=== PATIENT | female | born 1940 | race Asian ===

== ENCOUNTER 2016-05-04 11:00 | Outpatient (CLI) | payer MEDICARE, OTHER ==
[~2016-05-04] VITALS: Ht 147.3 cm; Wt 53.5 kg
[2016-05-04 11:10] VITALS: BP_SYST 113; BP_SYST 124; BP_DIAS 62; BP_DIAS 64
[2016-05-04 12:15] LABS: BASOPHILS % (AUTO) 0.6 % (0.0-2.0); DIFF TOTAL % 100 %; EOSINOPHILS # (AUTO) 0.1 /CMM (0.0-0.7); EOSINOPHILS % (AUTO) 2.1 % (0.0-6.0); HEMATOCRIT 39 % (33-45); HEMOGLOBIN 12.9 g/dL (11.5-14.8); LYMPHOCYTES # (AUTO) 1.5 /CMM (0.8-4.8); LYMPHOCYTES % (AUTO) 28.8 % (20.0-44.0); MEAN CORPUSCULAR HEMOGLOBIN 30 PG (26.0-33.0); MEAN CORPUSCULAR HGB CONC 33 g/dl (31.0-36.0); MEAN CORPUSCULAR VOLUME 91 fL (82-100); MONOCYTES # (AUTO) 0.4 /CMM (0.1-1.30); MONOCYTES % (AUTO) 8.7 % (2.0-12.0); NEUTROPHILS # (AUTO) 3.1 /CMM (1.8-8.9); NEUTROPHILS % (AUTO) 59.8 % (43.0-81.0); PLATELET COUNT (AUTO) 250 /CMM (150-450); RED BLOOD CELL COUNT(AUTO) 4.23 MIL/uL (4.0-5.2); WHITE BLOOD COUNT (AUTO) 5.1 K/uL (4.3-11.0)
[2016-05-04 12:30] LABS: CALCIUM, SERUM 9.8 mg/dL (8.5-10.1); CREATININE 0.8 mg/dL (0.6-1.3); POTASSIUM 4.4 mmol/L (3.5-5.1)
== END 2016-05-04 23:59 | disposition home or self-care (01) ==
LOC: CSC 11:00
PROVIDERS: ATTEND Internal Medicine
DX: G31.84 Mild cognitive impairment of uncertain or unknown etiology (principal); M48.50XD Collapsed vertebra, not elsewhere classified, site unspecified, subsequent encounter for fracture with routine healing; K21.9 Gastro-esophageal reflux disease without esophagitis; E11.9 Type 2 diabetes mellitus without complications; R25.2 Cramp and spasm; I10 Essential (primary) hypertension; Z79.84 Long term (current) use of oral hypoglycemic drugs; Z79.899 Other long term (current) drug therapy; Z83.3 Family history of diabetes mellitus; Z82.49 Family history of ischemic heart disease and other diseases of the circulatory system
CPT/HCPCS: 36415; 80048; 82607; 85025; 97001; G0463

== ENCOUNTER 2016-07-13 10:54 | Outpatient (CLI) | payer MEDICARE, OTHER ==
[~2016-07-13] VITALS: Ht 147.3 cm; Wt 53.1 kg
[2016-07-13 11:05] VITALS: BP_SYST 148; BP_SYST 152; BP_DIAS 68; BP_DIAS 70
[2016-07-13 12:10] LABS: CREATININE 0.7 mg/dL (0.6-1.3); MAGNESIUM 1.9 mg/dL (1.8-2.4); POTASSIUM 4.7 mmol/L (3.5-5.1)
== END 2016-07-13 23:59 | disposition home or self-care (01) ==
LOC: CSC 10:54
PROVIDERS: ATTEND Internal Medicine
DX: G47.62 Sleep related leg cramps (principal); E16.2 Hypoglycemia, unspecified
CPT/HCPCS: 36415; 80048-TC; 83735-TC; G0463